=== PATIENT | female | born 1950 | race Hispanic/Latino ===

== ENCOUNTER 2017-12-08 06:02 | Day surgery (SDC) | payer MEDICARE, BC ==
[2017-12-06 09:31] VITALS: BMI 19.8
[2017-12-08] MEDS ORDERED: Phenylephrine 10 mg/ml Inj ONE (06:48)
[2017-12-08] MEDS ORDERED: Lidocaine 2% Inj (20ml) ONE (06:48)
[2017-12-08] MEDS ORDERED: Nitroglycerin 50mg in D5W 0 MG/0 ML BOTTLE IV ONE (06:49)
[2017-12-08] MEDS ORDERED: Iodixanol 320 MG/ML 200 ML BOTTLE IV ONE (06:49)
[2017-12-08] MEDS ORDERED: Iohexol 350mgl/ml 50 ML ONE (06:49)
[2017-12-08] MEDS ORDERED: Midazolam 2 MG/2 ML VIAL ONE (07:05)
[2017-12-08] MEDS ORDERED: Sodium Chloride 0.9% 1,000 ML IV SCH (08:15)
[2017-12-08 09:33] VITALS: TEMP 98.6
[2017-12-08 09:38] VITALS: RESP 18
[2017-12-08 10:05] VITALS: O2SAT 97
[2017-12-08 10:34] VITALS: BP 123/51; PULSE 67
--- NOTE | 2017-12-08 13:44 | CARDCATH ---
PROCEDURE DATE: 12/08/2017 PROCEDURES: 1. Selective left and right coronary angiography. 2. Left ventriculography. 3. Right femoral arteriography. 4. Angio-Seal deployment. HISTORY: This is a 67-year-old woman with a history of peripheral vascular disease and recent exertional dyspnea, who underwent stress testing, which was abnormal. Cardiac catheterization was advised. INDICATIONS: Abnormal stress test, exertional dyspnea. FINDINGS: HEMODYNAMICS: Aortic pressure is 130/70 with left ventricular pressure of 130/20. CORONARY ANATOMY: 1. The left mainstem was normal. 2. The left anterior descending artery and its branches had minimal irregularities. 3. The left circumflex artery and its branches also had minimal irregularities. 4. The right coronary artery was dominant and normal. LEFT VENTRICULOGRAPHY: A hand injection was performed in the left ventricle and revealing normal wall motion with an ejection fraction of 65%. There was no aortic valve gradient noted on catheter pullback. Mitral regurgitation was not assessed. RIGHT FEMORAL ARTERIOGRAPHY: A right femoral arteriogram was performed in the MISA projection. The right femoral arteriogram revealed evidence of mild to moderate diffuse atherosclerotic disease. The puncture site was at the appropriate level. This was then closed with deployment of a Mynx device. CONCLUSION: 1. No significant obstructive coronary artery disease. 2. Normal left ventricular systolic function. RECOMMENDATION: Continued risk factor control was advised. Sathish Enriquez MD cc: Saida Littlejohn MD.
--- NOTE | 2017-12-08 14:12 | CARD ---
APPROVED REPORT EKG Measurement Heart [id number] <Conclusion> Normal sinus rhythm Normal ECG Electrical artifact present
== END 2017-12-08 11:03 | disposition home or self-care (01) ==
LOC: CATH 06:02
PROVIDERS: ATTEND Internal Medicine Cardiovascular Disease
DX: I25.10 Atherosclerotic heart disease of native coronary artery without angina pectoris (principal); I73.9 Peripheral vascular disease, unspecified; I10 Essential (primary) hypertension; R94.39 Abnormal result of other cardiovascular function study; Z86.73 Personal history of transient ischemic attack (TIA), and cerebral infarction without residual deficits
CPT/HCPCS: 36415; 86850; 86900; 93005; 93458; 99152; C1760; C1769; C2629; J1644; J2250; J3010; J7040 ×2; Q9966

== ENCOUNTER 2018-08-29 10:07 | Outpatient (CLI) | payer MEDICARE, BC | END 2018-08-29 10:08 | disposition home or self-care (01) | LOC: RAD 10:07 ==

== ENCOUNTER 2018-12-15 12:51 | Outpatient (CLI) | payer MEDICARE, BC | END 2018-12-15 12:52 | disposition home or self-care (01) | LOC: RAD 12:51 | DX: Z12.31 Encounter for screening mammogram for malignant neoplasm of breast (principal) ==